=== PATIENT | male | born 1995 | race Caucasian/White ===

== ENCOUNTER 2017-06-14 20:25 | Inpatient (IN) | payer OTHER ==
[~2017-06-14] VITALS: Ht 175.3 cm; Wt 69.1 kg
[2017-06-14 21:48] LABS: MEAN CORPUSCULAR HEMOGLOBIN 30.3 pg (27.0-33.0); MEAN CORPUSCULAR VOLUME 86.7 fl (80.0-96.0); PLATELET COUNT, AUTOMATED 237 k/mm3 (150-450); RED CELL DISTRIBUTION WIDTH 12.4 % (11.5-14.5)
[2017-06-14 22:03] LABS: THYROXINE (T4) 6.9 UG/DL (6.0-11.6)
[2017-06-14 22:04] LABS: ALBUMIN 4.2 GM/DL (3.2-5.2); ALBUMIN/GLOBULIN RATIO 1.56 (1.00-1.93); ALKALINE PHOSPHATASE 79 U/L (45-117); ALT/SGPT 18 U/L (12-78); ANION GAP 9 MEQ/L (8-16); AST/SGOT 15 U/L (15-37); BILIRUBIN,DIRECT 0.4 MG/DL (0.0-0.2); BILIRUBIN,TOTAL 2.7 MG/DL (0.2-1.0); BLOOD UREA NITROGEN 16 MG/DL (7-18); CALCIUM LEVEL 9.3 MG/DL (8.5-10.1); CARBON DIOXIDE LEVEL 28 MEQ/L (21-32); CHLORIDE LEVEL 105 MEQ/L (98-107); CREATININE FOR GFR 1.02 MG/DL (0.70-1.30); GLUCOSE, FASTING 72 MG/DL (70-105); POTASSIUM SERUM 4.1 MEQ/L (3.5-5.1); SODIUM LEVEL 142 MEQ/L (136-145); TOTAL PROTEIN 6.9 GM/DL (6.4-8.2)
--- NOTE | 2017-06-14 22:10 | REPUSA ---
CLINICAL HISTORY: Altered level of consciousness COMPARISON: No study for comparison is available at the time of interpretation. TECHNIQUE: Head CT without contrast. Total DLP 895 mGy*cm Brain: No intracranial hemorrhage, hydrocephalus, acute parenchymal edema or evident mass. Calvarium: Unremarkable. Sinuses (partially visualized): Osteoma is noted in the right ethmoid air cells. No mucosal thickenin g or fluid levels. IMPRESSION: No acute intracranial findings.
[2017-06-14 22:20] LABS: METHADONE URINE NEGATIVE (NEGATIVE)
[2017-06-14] MEDS ORDERED: ACETAMINOPHEN TAB 650MG DOSE (2X325MG) PO PRN (22:45)
[2017-06-14] MEDS ORDERED: MAALOX 30 ML SUSP *UDC PO PRN (22:45)
[2017-06-14] MEDS ORDERED: MOM 30ML SUSPENSION UDC PO PRN (22:45)
[2017-06-14] MEDS ORDERED: traZODone 50 MG TAB PO PRN (22:45)
[2017-06-15 02:32] VITALS: BP 136/86
[2017-06-15 06:25] VITALS: BP 136/86
--- NOTE | 2017-06-15 09:12 | HPEPDOC ---
Medical History and Physical Date of Admission Jun 14, 2017 at 22:38 History and Physical PCP: [facility] ATTENDING: Dr. Huber Castro HPI: 21yoM admitted to [facility] for unspecified depressive disorder, being medically examined today. States he feels tired. Reports feeling tired all of the time. States he can never get a good night's rest. Feels like he has had brain side for the past 2 months. States even after sleeping at night he does not feel refreshed. Denies cataplexy. Denies any fevers, chills, weakness,RGAHAM, CP , SOB, cough, palpitations, abdominal pain, N/V/D or changes in bowel or bladder habits. PMHx: Depression Insomnia PSHX: Appendectomy SOCHX: Resides in: [place], from [facility] Marital Status: Single Kids: None Employment: Active duty Tobacco use: Denies ETOH: Denies Illicit Drugs: Denies IV Drug Use: Denies Tattoos done unprofessionally: Denies FAMHX: Mother: Alive, well Father: Alive, well Siblings: Alive, well Children: None Unexpected deaths due to medical reasons: None. ROS: As noted in HPI, otherwise 11pt ROS of systems reviewed and unremarkable. PE: GEN: 21yoM, appears stated age. Well-nourished, well developed. No acute distress. Alert and oriented x 3. Affect is flat, avoids eye contact. HEENT: Normocephalic, atraumatic. Pupils are equal, round, and reactive to light. Extraocular movements are intact. No nystagmus appreciated. Sclera are nonicteric. Conjunctiva without injection. Nose midline. Nasal turbinates without bogginess. EACs both patent BL. TMs both visualized and foster with good cone of light, no bulging or erythema. No facial asymmetry. Moist mucous membranes. Dentition fair. Pharynx pink and moist, no cobblestoning. Neck supple , trachea midline. No lymphadenopathy or thyromegaly appreciated. CHEST: Regular rate and rhythm, +S1, +S2 LUNGS: Clear to auscultation bilaterally. No wheezes, rales, or rhonchi. Breathing appears symmetric and easy. Patient is speaking in full sentences. No accessory muscle use. ABD: Round, soft, non-tender, non-distended. +Bowel sounds throughout. No rebound or guarding. No costovertebral angle tenderness. EXT: Pulses 2+ bilaterally dorsalis pedis and radial. No lower extremity edema appreciated. SKIN: [place], dry, warm. Capillary refill <2sec. No rashes. NEURO: Alert and oriented x 3. Cranial nerves III-XII are intact. No focal deficits appreciated. EKG: Pending CT head No acute intracranial findings. UA pending. A&P: 21yoM admitted to [facility] for unspecified depressive disorder 1. Psych. Plan per Psychiatry. Obtain baseline EKG to assure the safety of psychiatric medications as they can prolong the QT interval. 2. Mild anemia. Check iron studies, B12, folate. 3. Follow up with PCP on discharge. 4. Hypersomnolence. TFTs within normal limits. CT head as above. CT with contrast pending/EEG pending. Consider referral to neurology with sleep study. 5. Staff member Sukh present throughout exam. Vital Signs Vital Signs Date Time Temp Pulse Resp B/P (MAP) Pulse Ox O2 Delivery O2 Flow Rate FiO2 06/15/17 06:25 98.4 50 16 136/86 (103) 100 Room Air Laboratory Data Labs 24H Laboratory Tests 2 06/14/17 20:51: Anion Gap 9, Calcium Level 9.3, Aspartate Amino Transf (AST/SGOT) 15, Alanine Aminotransferase (ALT/SGPT) 18, Alkaline Phosphatase 79, Total Bilirubin 2.7H, Direct Bilirubin 0.4H, Total Creatine Kinase 154, Total Protein 6.9, Albumin 4.2 , Albumin/Globulin Ratio 1.56, Thyroid Stimulating Hormone (TSH) 1.470, Free Thyroxine Index 2.5, Thyroxine (T4) 6.9, Triiodothyronine (T3) Uptake 36, Salicylates Level < 1.7L, Urine Amphetamines Screen NEGATIVE, Urine Benzodiazepines Screen NEGATIVE, Urine Opiates Screen NEGATIVE, Urine Methadone Screen NEGATIVE, Acetaminophen Level < 2.0L, Urine Barbiturates Screen NEGATIVE , Urine Phencyclidine Screen NEGATIVE, Urine Cocaine Metabolite Screen NEGATIVE , Urine Cannabinoids Screen NEGATIVE, Ethyl Alcohol Level < 0.003 CBC/BMP Laboratory Tests 06/14/17 20:51 Red Blood Count 4.43, Mean Corpuscular Volume 86.7, Mean Corpuscular Hemoglobin 30.3, Mean Corpuscular Hemoglobin Concent 35.0, Red Cell Distribution Width 12.4 Home Medications No Active Prescriptions or Reported Meds Allergies Coded Allergies: No Known Allergies (Unverified , 06/14/17) Haley Groves Jun 15, 2017 09:12
[2017-06-15 12:06] LABS: REASON FOR REVIEW COMPREHENSIVE REVIEW
[2017-06-15] MEDS: buPROPion 75 MG TAB PO SCH (14:30)
[2017-06-15] MEDS ORDERED: ISOVUE-370 76% 100ML VIAL (Q9967) As Ordered ONE (14:41)
--- NOTE | 2017-06-15 15:43 | REP ---
CT HEAD WITH CONTRAST: HISTORY: Altered consciousness. CONTRAST: Isovue-370, 75 mL COMPARISON: 06/14/2017 There is no abnormal enhancement with contrast. Signed by Kevin Gan MD 06/15/2017 04:10 P
--- NOTE | 2017-06-15 16:17 | MHHPEPDOC ---
[facility] History & Physical History and Physical DATE OF ADMISSION: Jun 14, 2017 at 22:38 LEGAL STATUS AT ADMISSION: 9.39 CHIEF COMPLAINT: "I'm tired all the time" HISTORY OF THE PRESENT ILLNESS: Patient is a 21-year-old male, who was brought to the ED for evaluation after multiple visits to [facility] for suicidal ideation. Patient reports a history of steadily increasing fatigue over the past 2 months which has not been remedied by multiple variations of sleep such as: decreasing sleep, increasing sleep, increasing/decreasing activity. Patient reports that he can sleep for an entire day and upon waking feels as though he has only slept 10 minutes. He is noted to be very drowsy throughout the interview. Associated with this increased need for sleep the patient identifies that he has "30-45 minute blocks of time" in which he cannot remember his actions. Records from [place] indicate that the patient has made mention of wanting to kill himself and has been observed holding conversations with himself that are occasionally disturbing to his roommate. Patient denies ever having suicidal ideation but does agree that he occasionally talks to himself, but is not talking to unseen others per the records. 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 Patient denies any recent stressors which may have contributed to this current presentation; he also denies toxic exposures or insect bites within the past several months. He does not a head injury with LOC when he was 9 but denies seeking medical treatment at the time or any lasting effects. PSYCHIATRIC REVIEW OF SYSTEMS: Patient reports increased need for sleep and decreased energy; he denies a depressed mood, suicidal thoughts, or change in appetite. He denies homicidal ideations, auditory or visual hallucinations, a sense of anxiety, or past traumatic events. PAST PSYCHIATRIC HISTORY: Prior Psychiatric Disorder: denies; denies family history of psychiatric illness. Outpatient Treatment: denies Suicidal/Self injurious: denies Psychotropic Medication History: denies ALLERGIES: Please see below. FAMILY PSYCHIATRIC HISTORY: denies SOCIAL HISTORY: Early Relations/development: reports "average" childhood; denies any major issues growing up Paternal relationships: no issues with his parents Education: high school, wants to attend college Occupational: active duty soldier, recently completed basic training Legal: denies Martial: single Economic: no major financial concerns Supports: family lives near [place], [place]; has good connections when he returns home Abuse/trauma: denies SUBSTANCE ABUSE HISTORY: denies PAST MEDICAL/SURGICAL HISTORY: denies any history Vital Signs Date Time Temp Pulse Resp B/P (MAP) Pulse Ox O2 Delivery O2 Flow Rate FiO2 06/14/17 20:26 97.0 96 18 110/60 (77) 99 Room Air MENTAL STATUS EXAMINATION: 21 year old male who appears stated age, dressed in [facility]; calm and cooperative with interview, somnolent. Speech is fluent with regular rate and rhythm, normal tone. Thought process appears logical, linear, and goal-oriented ; he displays decreased latency in his response although this may be due to tiredness; associations are intact. Denies SI/HI/AVH. His cognition appears grossly intact however he required repetition of several questions during the interview, likely secondary to his somnolence. Insight and judgement appear fair. Patient oriented to self and place; had difficulty with temporal orientation; he displays good recent and remote memory. His mood is "alright, but tired"; affect is sleepy/depressed; blunted range, congruent to stated mood DIAGNOSES: Unspecified Depressive Disorder; r/o Major Depressive Disorder vs. Depressive Disorder secondary to other medical condition Unspecified Hypersomnolence Disorder ASSESSMENT: This is a 21 year old man with no known psychiatric history who is presenting with possible depressed mood and reports of previous suicidal ideation. Patient describes a 2-month history of steadily increasing hypersomnolence and fatigue without known cause. At this time the presenting diagnosis is unclear and will need further evaluation of both medical and psychiatric causes. Patient does not appear to be an acute danger to himself or others at this time, however he is experiencing distressing symptoms related to his somnolence. PROBLEM LIST: 1. Depressed Mood 2. Altered Consciousness 3. Self-care deficit INITIAL TREATMENT PLAN: 1. Patient was admitted on a 9.39 2. Complete history was obtained. 3. With patients permission, family will be contacted and database will be expanded. 4. Patients medication regimen will be reviewed and changed accordingly. Will start patient on Wellbutrin 75mg daily for depressed mood and to assist with somnolence. 5. Patient will be provided with protected environment. 6. Patient will be treated with individual, group, and milieu therapies. 7. Patient will receive supportive psych-education. 8. Discharge planning will commence immediately. 9. Outpatient follow-up treatment will be strongly recommended. 10. The initial treatment plan will focus initially on: * Depression. * Risk for suicide. * Substance abuse. 11. EEG performed, awaiting results 12. Repeat CT performed with contrast, initial report states no enhancements with contrast; consider MRI to look for white matter disease 13. Sleep studies (polysomnography and mean sleep latency) to be arranged for outpatient follow-up 14. Lyme panel and peripheral blood smear to assist in finding medical causes of hypersomnolence, fatigue, and mild anemia ESTIMATED LENGTH OF STAY: 5-7 DAYS. TIME SPENT COUNSELING AND COORDINATING INITIAL CARE: 45 minutes. Laboratory Data 24H Labs Laboratory Tests 2 06/14/17 20:51: Differential Slide Review Report, Differential Pathologist's Review COMPREHENSIVE REVIEW, Peripheral Blood Smear Path Consult PERIPHERAL SMEAR, Anion Gap 9, Calcium Level 9.3, Aspartate Amino Transf (AST/SGOT) 15, Alanine Aminotransferase (ALT/SGPT) 18, Alkaline Phosphatase 79, Total Bilirubin 2.7H, Direct Bilirubin 0.4H, Total Creatine Kinase 154, Total Protein 6.9, Albumin 4.2 , Albumin/Globulin Ratio 1.56, Thyroid Stimulating Hormone (TSH) 1.470, Free Thyroxine Index 2.5, Thyroxine (T4) 6.9, Triiodothyronine (T3) Uptake 36, Salicylates Level < 1.7L, Urine Amphetamines Screen NEGATIVE, Urine Benzodiazepines Screen NEGATIVE, Urine Opiates Screen NEGATIVE, Urine Methadone Screen NEGATIVE, Acetaminophen Level < 2.0L, Urine Barbiturates Screen NEGATIVE , Urine Phencyclidine Screen NEGATIVE, Urine Cocaine Metabolite Screen NEGATIVE , Urine Cannabinoids Screen NEGATIVE, Ethyl Alcohol Level < 0.003 CBC/BMP Laboratory Tests 06/14/17 20:51 Red Blood Count 4.43, Mean Corpuscular Volume 86.7, Mean Corpuscular Hemoglobin 30.3, Mean Corpuscular Hemoglobin Concent 35.0, Red Cell Distribution Width 12.4 Medications No Active Prescriptions or Reported Meds Allergies Coded Allergies: No Known Allergies (Unverified , 06/14/17) YOGI DALTON MD Jun 15, 2017 16:17
--- NOTE | 2017-06-15 16:42 | ECGEPIP ---
Stationary ECG Study [facility] Test Date: 2017-06-15 Pat Name: ALANNAH GUNDERSON Department: Room: [place] [address] Gender: M [employer] Layer: : 1995 Requested By: Haley Groves Order Number: [id number] Reading MD: Jovany Wan Measurements Intervals [place] Rate: 56 P: 30 [place]: 117 QRS: 77 QRSD: 100 T: 59 QT: 407 QTc: 395 Interpretive Statements Sinus bradycardia/sinus arrhythmia. Within normal limits for age Electronically Signed On 06-15-2017 16:42:16 EDT by Jovany Wan
[2017-06-15 18:00] VITALS: BP 128/60
[2017-06-16 06:34] VITALS: BP 150/66
[2017-06-16 07:45] LABS: MEAN CORPUSCULAR HEMOGLOBIN 30.1 pg (27.0-33.0); MEAN CORPUSCULAR HGB CONC 34.6 g/dl (32.0-36.5); MEAN CORPUSCULAR VOLUME 86.9 fl (80.0-96.0); RED CELL DISTRIBUTION WIDTH 12.5 % (11.5-14.5)
[2017-06-16 08:04] LABS: PERCENT SATURATION 23.6 % (19.7-50.0)
[2017-06-16] MEDS: buPROPion 75 MG TAB PO SCH (08:29)
--- NOTE | 2017-06-16 09:38 | EEG ---
DATE OF PROCEDURE: 06/15/2017 REFERRING PHYSICIAN: Dr. Aurora Mcrae DIAGNOSIS: Altered mental status. EEG NUMBER: [id number] HISTORY: The patient is a 21-year-old man who was admitted at [facility] due to insomnia and depression. He feels tired. This EEG was done to rule out epileptic potential and to evaluate for encephalopathy. He is currently on trazodone, Tylenol, etc. TECHNICAL DESCRIPTION: This digital EEG was recorded by 21 scalp, ear and two EKG electrodes and was reviewed in bipolar and referential montages following reformatting in 10-20 international electrode placement system. INTERPRETATION: The patient was noted to be in awake and drowsy states during this EEG. Resting awake background rhythm consisted of well-formed posterior dominant rhythm with anterior/posterior gradient comprising of 10 Hz alpha activity measuring 20-70 microvolts in amplitude which was symmetric and reactive to eye opening. Anteriorly low voltage and mixed frequency activity was noted. Attenuation of posterior dominant rhythm was seen during transition into drowsiness. No sleep was achieved. Hyperventilation elicited mild theta slowing of background rhythm. Photic stimulation at 3-30 Hz elicited symmetric photic driving, especially at mid frequencies. EKG revealed normal sinus rhythm. No focal, lateralizing or epileptiform abnormalities were seen. No clinical or electrographic seizures were recorded. CONCLUSION: This EEG in awake and drowsy states is within normal limits.
[2017-06-16 18:00] VITALS: BP 123/56
[2017-06-17 06:43] VITALS: BP 129/60
[2017-06-17] MEDS: buPROPion 100 MG TAB PO SCH (09:02)
[2017-06-17 18:00] VITALS: BP 116/54
--- NOTE | 2017-06-17 20:53 | MHIPN ---
DATE: 06/16/2017 VITAL SIGNS: Temperature 98.5, pulse 54, respirations 16, blood pressure 150/66. CURRENT MEDICATIONS: - Wellbutrin 75 mg every morning - trazodone 50 mg nightly as needed HISTORY OF PRESENT ILLNESS: This is a 21-year-old white male with a history of suicidal ideation, depression, fatigue, and hypersomnia. He is not able to explain the hypersomnia. He denies any major stress in his life. He claims he is coping well with life here in the . The patient grew up in the [facility] and sees his family on a regular basis. 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 The patient has been on Wellbutrin for a number of days now and he is tolerating it well. He has not noticed any benefit from it, but is willing to increase the dosage. MENTAL STATUS EXAMINATION: The patient is alert, oriented, and cooperative. He does appear quite sleepy. Affect is sad. He minimizes the depression, however. He currently denies suicidal ideation. No signs of bre. He denies any psychotic symptoms. He is not hearing voices. No paranoia or thought disorder. Grooming and hygiene appear good. DIAGNOSIS: Depressive disorder, unspecified. PLAN: Increase Wellbutrin to 100 mg by mouth every morning.
[2017-06-18 06:55] VITALS: BP 120/60
[2017-06-18 07:37] LABS: ALBUMIN 4.2 GM/DL (3.2-5.2); ALBUMIN/GLOBULIN RATIO 1.35 (1.00-1.93); ALKALINE PHOSPHATASE 80 U/L (45-117); ALT/SGPT 16 U/L (12-78); AST/SGOT 8 U/L (15-37); BILIRUBIN,DIRECT 0.3 MG/DL (0.0-0.2); BILIRUBIN,TOTAL 1.7 MG/DL (0.2-1.0); TOTAL PROTEIN 7.3 GM/DL (6.4-8.2)
--- NOTE | 2017-06-18 07:45 | IPN ---
DATE: 06/17/2017 VITAL SIGNS: Temperature 97.0, pulse 58, respirations 16, blood pressure 129/60. CURRENT MEDICATIONS: - Wellbutrin 100 mg every morning HISTORY OF PRESENT ILLNESS: Patient still complains of fatigue. He slept all day yesterday. He feels exhausted this morning. He is concerned about losing his memory. For example, he is concerned about loss of memory details during 2014 and 2016. Patient states he is too tired to know if he is depressed or not. He is complaining of headaches. He is somewhat vague about this, but they appear to be new since being on the Wellbutrin. He will discuss this with his provider tomorrow. MENTAL STATUS EXAMINATION: Patient does appear to be fatigued. He is oriented. Insight appears limited. Judgment is fair. Affect does appear sad with apparent depressed mood. He is not suicidal. No signs of psychosis. Patient reports memory impairment from 2014 and 2015, but no current memory issues or deficits noted. DIAGNOSIS: Unspecified depressive disorder. PLAN: No change in psychotropics. Patient to see normal provider tomorrow.
[2017-06-18] MEDS: buPROPion 100 MG TAB PO SCH (09:27)
[2017-06-18 10:01] LABS: IMMUNOGLOBULIN M 46.8 MG/DL (40-230)
[2017-06-18 11:47] LABS: FOLATE 20.4 NG/ML (>5.4)
--- NOTE | 2017-06-18 17:32 | MHIPNPDOC ---
[facility] Progress Note Progress Note DATE OF SERVICE: 06/18/17 HISTORY: Patient remains very somnolent, reports that he felt somewhat more energized on the previous day. Has had no reported side effects from starting Wellbutrin. Staff report indicates that patient's tiredness may be somewhat volitional as he has been observed interacting appropriately with his command and to have become more animated during 1:1 interview with staff. Patient remains in agreement with current plan to seek medical causes of his fatigue, remains compliant with Wellbutrin administration. VITAL SIGNS: See below. NEW TEST RESULTS: see lab section. CURRENT MEDICATIONS: See below. MENTAL STATUS EXAMINATION: 21 year old man who appears stated age; dressed in [facility] with good hygiene; somnolent during interview. Speech is delayed, but has a normal rhythm and tone, patient appears exhausted. His thought process appears logical and goal-oriented; limited assessment can be made of his reasoning and associations as he does not talk much, but they appear intact. He denies suicidal or homicidal ideation. Denies auditory or visual hallucinations. Mood is "tired", affect is sleepy, restricted range, congruent to stated mood. Insight and judgement appear fair. DIAGNOSES: Unspecified Depressive Disorder Unspecified Hypersomnolence Disorder ASSESSMENT: 21 year old man with hypersomnolence of unknown origin. Medical workup is still pending, patient will need a sleep study to assist in ruling out medical causes of his current condition. He is not reporting depressive or anxious symptoms however he has gaps in his memory suggestive of either cognitive dysfunction or dissociative states. Patient will need further examination and testing to rule out a medical cause. MANAGEMENT PLAN: Plan to have patient go on pass for polysomnography and possible mean sleep latency testing; awaiting lab results for other medical causes of his current condition; will continue Wellbutrin with plan to increase to 150mg daily. TIME SPENT: 20 minutes. Vital Signs Vital Signs Date Time Temp Pulse Resp B/P (MAP) Pulse Ox O2 Delivery O2 Flow Rate FiO2 06/18/17 06:55 98.3 50 16 120/60 (80) Room Air 06/15/17 06:25 100 Laboratory Data 24H Labs Laboratory Tests 2 06/18/17 06:48: 06/18/17 06:50: Aspartate Amino Transf (AST/SGOT) 8L, Alanine Aminotransferase (ALT/SGPT) 16, Alkaline Phosphatase 80, Total Bilirubin 1.7H, Direct Bilirubin 0.3H, Total Protein 7.3, Albumin 4.2, Albumin/Globulin Ratio 1.35, Immunoglobulin M 46.8, Rheumatoid Factor < 10.0 Current Medications Current Medications Acetaminophen (Tylenol Tab) 650 mg Q6HP PRN PO HEADACHE or DISCOMFORT; Start at 22:45; Stop 07/14/17 at 22:44 Al Hydrox/Mg Hydrox/Simethicone (Mylanta) 30 ml Q4HP PRN PO HEARTBURN/ INDIGESTION; Start 06/14/17 at 22:45; Stop 07/14/17 at 22:44 Bupropion HCl (Wellbutrin) 75 mg DAILY PO Last administered on 06/16/17 08:29; Start 06/15/17 at 09:00; Stop 06/16/17 at 10:22; Status DC Bupropion HCl (Wellbutrin) 100 mg DAILY PO Last administered on 06/18/17 09:27 ; Start 06/17/17 at 09:00; Stop 07/17/17 at 08:59 Home Med (Med Rec Complete!) ASDIRECTED XX ; Start 06/14/17 at 21:45; Stop at 21:45; Status DC Magnesium Hydroxide (Milk Of Magnesia) 30 ml DAILYPRN PRN PO CONSTIPATION; Start 06/14/17 at 22:45; Stop 07/14/17 at 22:44 Trazodone HCl (Desyrel) 50 mg QHSP PRN PO INSOMNIA; Start 06/14/17 at 22:45; Stop 07/14/17 at 22:44 Allergies Coded Allergies: No Known Allergies (Unverified , 06/14/17) YOGI DALTON MD Jun 18, 2017 17:32
[2017-06-18 18:25] VITALS: BP 122/59
[2017-06-19 06:44] VITALS: BP 123/58
[2017-06-19] MEDS: buPROPion 100 MG TAB PO SCH (08:41)
[2017-06-19] MEDS: buPROPion 75 MG TAB PO SCH (09:00)
--- NOTE | 2017-06-19 16:39 | MHIPNPDOC ---
[facility] Progress Note Progress Note DATE OF SERVICE: 06/19/17 HISTORY: Patient seen laughing in the hallway shortly before today's interview; at time of interview patient was again sleepy and having a difficult time focusing. When asked to explain this discrepancy as well as his observed interactions yesterday the patient states that after he showers he is awake for 10-15 minutes and that when talking to others and being more interactive he inflicts pain upon himself by biting his tongue. Patient states that he has been utilizing pain to keep himself awake for the past week so that he is able to function at work. VITAL SIGNS: See below. NEW TEST RESULTS: no new labs. CURRENT MEDICATIONS: See below. MENTAL STATUS EXAMINATION: Patient is 21 year old male who appears the stated age; dressed in [facility]; calm and cooperative with interview, very somnolent. His speech is fluent although has some delayed latency likely related to his expressed lethargy. Patient's thought process appears mildly illogical with bizarre explanations being provided for actions; patient remains goal-oriented, focused on finding help for his lethargy. Denies SI/HI/AVH; denies paranoia or delusions , none elicited in interview. Stated mood is "tired"; sleepy affect, restricted range; congruent to stated thought content. 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 Patient has no recollection of these events and describes instead a 2 month period of steadily increasing fatigue and associated memory gaps. At this time medical workup for causes of fatigue have remained negative. Patient has not appeared apneic or been noted to have excessive snoring. Patient has been observed to have varying levels of interaction but presents for evaluation with a consistent increased fatigue. There may be a volitional aspect to the patient's current presentation with unclear benefit to the patient. 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 It is possible that despite the patient's stated desire to remain in the he does not wish to continue his service. 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; increased Wellbutrin to 150mg daily; encourage patient to participate in group activities on the unit; continued psychiatric evaluation; awaiting Lyme titers and ROSEANNE titers for evaluation of medical causes; will have patient scheduled for outpatient sleep study TIME SPENT: 15 minutes Vital Signs Vital Signs Date Time Temp Pulse Resp B/P (MAP) Pulse Ox O2 Delivery O2 Flow Rate FiO2 06/19/17 06:44 97.1 66 16 123/58 (79) 06/18/17 06:55 Room Air 06/15/17 06:25 100 Current Medications Current Medications Acetaminophen (Tylenol Tab) 650 mg Q6HP PRN PO HEADACHE or DISCOMFORT; Start at 22:45; Stop 07/14/17 at 22:44 Al Hydrox/Mg Hydrox/Simethicone (Mylanta) 30 ml Q4HP PRN PO HEARTBURN/ INDIGESTION; Start 06/14/17 at 22:45; Stop 07/14/17 at 22:44 Bupropion HCl (Wellbutrin) 75 mg DAILY PO Last administered on 06/16/17 08:29; Start 06/15/17 at 09:00; Stop 06/16/17 at 10:22; Status DC Bupropion HCl (Wellbutrin) 100 mg DAILY PO Last administered on 06/18/17 09:27 ; Start 06/17/17 at 09:00; Stop 06/19/17 at 09:03; Status DC Bupropion HCl (Wellbutrin) 150 mg DAILY PO ; Start 06/19/17 at 09:00; Stop at 08:59 Home Med (Med Rec Complete!) ASDIRECTED XX ; Start 06/14/17 at 21:45; Stop at 21:45; Status DC Magnesium Hydroxide (Milk Of Magnesia) 30 ml DAILYPRN PRN PO CONSTIPATION; Start 06/14/17 at 22:45; Stop 07/14/17 at 22:44 Trazodone HCl (Desyrel) 50 mg QHSP PRN PO INSOMNIA; Start 06/14/17 at 22:45; Stop 07/14/17 at 22:44 Allergies Coded Allergies: No Known Allergies (Unverified , 06/14/17) YOGI DALTON MD Jun 19, 2017 16:39
[2017-06-19 18:08] VITALS: BP 114/56
[2017-06-20 00:06] LABS: Lyme Disease IgG/IgM Antibodie <0.91 ISR (0.00-0.90); Lyme Disease IgM Ab Quantitati <0.80 index (0.00-0.79)
[2017-06-20 06:45] VITALS: BP 125/56
[2017-06-20] MEDS: buPROPion 75 MG TAB PO SCH (09:00)
--- NOTE | 2017-06-20 17:54 | REP ---
MRI BRAIN WITHOUT CONTRAST: HISTORY: Behavior change. COMPARISON: CT 06/14/2017 and 06/15/2017 A single punctate focus of increased signal intensity on T2-weighted images is present in the subcortical white matter of the right frontal lobe. There is no intraparenchymal hemorrhage, infarct, mass or midline shift. The ventricular system is normal in appearance. There is no extracerebral collection. Minimal mucosal thickening is present in the right ethmoid and maxillary sinuses. IMPRESSION: There is a single punctate focus of increased signal intensity in the subcortical white matter of the right frontal lobe. This is a nonspecific finding. Signed by Kevin Gan MD 06/21/2017 08:30 A
[2017-06-20 18:01] VITALS: BP 110/56
--- NOTE | 2017-06-20 19:24 | MHIPNPDOC ---
[facility] Progress Note Progress Note DATE OF SERVICE: 06/20/17 HISTORY: Patient is a 21-year-old male, who was brought to the ED for evaluation after multiple visits to [facility] for suicidal ideation. Patient reports a history of steadily increasing fatigue over the past 2 months which has not been remedied by multiple variations of sleep such as: decreasing sleep, increasing sleep, increasing/decreasing activity. Yesterday the patient was seen walking and talking normally in the hallway and shortly after he was laying in bed, seemingly extremely sleepy, rolling his eyes , with slurred speech. one of the Nurses reported when he talks to her he is not sleepy. When confronted with discrepancies he states he bites his tongue when he talks to this Nurse, to keep himself awake. Today he was reported laying in bed by the Nursing Staff and Nurses Aids and said, he laughed inappropriately when they spoke to him. They say he pulls his sheets and covers his face, sometimes attempting to make a knot above his head. Once again , he was confronted with this situation, plus the fact, that he has been refusing medications, Wellbutrin to be precise, that was given to him in an attempt to perk him up assuming he could be depressed. He proceeds to say we haven't made all the medical tests that need to be done, that maybe his brain is not getting all the oxygen it should, maybe he is not getting enough blood flow. Questioned about his theory, he was told his EKG, blood pressure, heart rhythm are normal. An MRI of the brain was ordered and he was started on an antipsychotic. VITAL SIGNS: See below. NEW TEST RESULTS: MRI of the brain. MRI BRAIN WITHOUT CONTRAST: HISTORY: Behavior change. COMPARISON: CT 06/14/2017 and 06/15/2017 A single punctate focus of increased signal intensity on T2-weighted images is present in the subcortical white matter of the right frontal lobe. There is no intraparenchymal hemorrhage, infarct, mass or midline shift. The ventricular system is normal in appearance. There is no extracerebral collection. Minimal mucosal thickening is present in the right ethmoid and maxillary sinuses. IMPRESSION: There is a single punctate focus of increased signal intensity in the subcortical white matter of the right frontal lobe. This is a nonspecific finding. This is the result: CURRENT MEDICATIONS: See below. MENTAL STATUS EXAMINATION: Patient is a [21-year old male, who is alert, uncooperative, with no eye contact. Speech: Is Slurred. Language skills are Fair. Thought processes including: Intact. Thought content: coherent. Abstract reasoning, and computation: Not assessed. Description of associations: good. Description of abnormal or psychotic thoughts: Patient is not responding to internal stimuli. He denies auditory and visual hallucinations. He talks to himself, occasionally. Denies suicidal or homicidal ideation. Judgment: Poor. Insight: Poor. Orientation: Oriented x 3. Recent and remote memory: Intact. Attention span and concentration: Fair. Language: Normal. Fund of knowledge: Fair. Mood: Euthymic. Affect: Inappropriate, laughs when discussing serious and important issues . DIAGNOSES: 1. Unspecified depressive disorder 2. Unspecified personality disorder, possibly antisocial PD 3. Unspecified hypersomnolence d/o ASSESSMENT:patient's labs and tests results have been negative. There are discrepancies in his behavior. Is refusing medication. Patient is to remain out of his bedroom and ask for the bathroom to be unlocked if he needs to use it. patient has to engage in group therapy. MANAGEMENT PLAN: Aripiprazole 2.5 mgs PO QAM, Wellbutrin 150 mgs. PO QAM. TIME SPENT: 45 minutes. Vital Signs Vital Signs Date Time Temp Pulse Resp B/P (MAP) Pulse Ox O2 Delivery O2 Flow Rate FiO2 06/20/17 18:01 98.5 56 16 110/56 (74) 06/18/17 06:55 Room Air 06/15/17 06:25 100 Current Medications Current Medications Acetaminophen (Tylenol Tab) 650 mg Q6HP PRN PO HEADACHE or DISCOMFORT; Start at 22:45; Stop 07/14/17 at 22:44 Al Hydrox/Mg Hydrox/Simethicone (Mylanta) 30 ml Q4HP PRN PO HEARTBURN/ INDIGESTION; Start 06/14/17 at 22:45; Stop 07/14/17 at 22:44 Aripiprazole (AbiLIFY) 2.5 mg QAM PO Last administered on 06/20/17 16:34; Start 06/20/17 at 09:00; Stop 07/20/17 at 08:59 Bupropion HCl (Wellbutrin) 75 mg DAILY PO Last administered on 06/16/17 08:29; Start 06/15/17 at 09:00; Stop 06/16/17 at 10:22; Status DC Bupropion HCl (Wellbutrin) 100 mg DAILY PO Last administered on 06/18/17 09:27 ; Start 06/17/17 at 09:00; Stop 06/19/17 at 09:03; Status DC Bupropion HCl (Wellbutrin) 150 mg DAILY PO ; Start 06/19/17 at 09:00; Stop at 08:59 Home Med (Med Rec Complete!) ASDIRECTED XX ; Start 06/14/17 at 21:45; Stop at 21:45; Status DC Magnesium Hydroxide (Milk Of Magnesia) 30 ml DAILYPRN PRN PO CONSTIPATION; Start 06/14/17 at 22:45; Stop 07/14/17 at 22:44 Trazodone HCl (Desyrel) 50 mg QHSP PRN PO INSOMNIA; Start 06/14/17 at 22:45; Stop 07/14/17 at 22:44 Allergies Coded Allergies: No Known Allergies (Unverified , 06/14/17) BAR BURNETT MD Jun 20, 2017 19:24
[2017-06-21 07:06] VITALS: BP 126/52
[2017-06-21] MEDS: buPROPion 75 MG TAB PO SCH (08:34)
[2017-06-21 18:00] VITALS: BP 103/55
--- NOTE | 2017-06-21 18:14 | MHIPNPDOC ---
[facility] Progress Note Progress Note DATE OF SERVICE: 06/21/17 HISTORY: MRI w/contrast showed small non-specific lesion in frontal lobe. Patient informed of this, told he would be referred to a neurologist for further evaluation. Patient states he feels "a little more awake" today, endorses that his sleepiness is not greatly changed and that it hits him worst after about 1-2 hours of waking time. Reports mild nausea from aripiprazole but otherwise has no complaints today. Is agreeable to returning to [place] with continued outpatient follow-up for medical workup. VITAL SIGNS: See below. NEW TEST RESULTS: MRI Brain - There is a single punctate focus of increased signal intensity in the subcortical white matter of the right frontal lobe. This is a nonspecific finding. CURRENT MEDICATIONS: See below. MENTAL STATUS EXAMINATION: Patient is 21 year old male who appears the stated age; dressed in [facility]; calm and cooperative with interview, very somnolent; limited eye contact. His speech is fluent with no noticeable latency today. Patient's thought process is logical, goal-oriented; associations appear intact. Denies SI/HI/AVH; denies paranoia or delusions, none elicited in interview. Stated mood is "tired"; sleepy affect, restricted range; congruent to stated thought content. Insight appears poor; judgement appears poor-fair DIAGNOSES: Unspecified Hypersomnolence Disorder Unspecified Personality Disorder Unspecified Depressive Disorder, r/o MDD with psychotic features ASSESSMENT: Patient appears to be responding to initiation of Abilify; will plan to continue and increase dose as tolerated. Patient has thus far had negative medical workup for causes of hypersomnolence. Non-specific finding on MRI may be indicative of a medical cause for his behaviors, however this will need further evaluation by a neurologist. Patient has had limited participation in groups but has managed to stay awake while locked out of room. At this time there appears to be no overt medical cause of patient's behavior and somnolence ; in the absence of a sleep study this may suggest a psychiatric defense from some as yet undiscussed onerous burden. 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 MANAGEMENT PLAN: Increase Abilify to 5mg BID; encourage patient to continue participating in milieu activities; encourage patient to maintain regular sleep schedule; will refer to outpatient Neurology on discharge. TIME SPENT: 15 minutes. Vital Signs Vital Signs Date Time Temp Pulse Resp B/P (MAP) Pulse Ox O2 Delivery O2 Flow Rate FiO2 06/21/17 07:06 98.8 68 16 126/52 (76) 06/18/17 06:55 Room Air 06/15/17 06:25 100 Current Medications Current Medications Acetaminophen (Tylenol Tab) 650 mg Q6HP PRN PO HEADACHE or DISCOMFORT; Start at 22:45; Stop 07/14/17 at 22:44 Al Hydrox/Mg Hydrox/Simethicone (Mylanta) 30 ml Q4HP PRN PO HEARTBURN/ INDIGESTION; Start 06/14/17 at 22:45; Stop 07/14/17 at 22:44 Aripiprazole (AbiLIFY) 2.5 mg QAM PO Last administered on 06/21/17 08:33; Start 06/20/17 at 09:00; Stop 06/21/17 at 14:46; Status DC Aripiprazole (AbiLIFY) 5 mg BID PO ; Start 06/21/17 at 21:00; Stop 07/20/17 at 08 :59 Bupropion HCl (Wellbutrin) 75 mg DAILY PO Last administered on 06/16/17 08:29; Start 06/15/17 at 09:00; Stop 06/16/17 at 10:22; Status DC Bupropion HCl (Wellbutrin) 100 mg DAILY PO Last administered on 06/18/17 09:27 ; Start 06/17/17 at 09:00; Stop 06/19/17 at 09:03; Status DC Bupropion HCl (Wellbutrin) 150 mg DAILY PO ; Start 06/19/17 at 09:00; Stop at 08:59 Home Med (Med Rec Complete!) ASDIRECTED XX ; Start 06/14/17 at 21:45; Stop at 21:45; Status DC Magnesium Hydroxide (Milk Of Magnesia) 30 ml DAILYPRN PRN PO CONSTIPATION; Start 06/14/17 at 22:45; Stop 07/14/17 at 22:44 Trazodone HCl (Desyrel) 50 mg QHSP PRN PO INSOMNIA; Start 06/14/17 at 22:45; Stop 07/14/17 at 22:44 Allergies Coded Allergies: No Known Allergies (Unverified , 06/14/17) YOGI DALTON MD Jun 21, 2017 18:14
[2017-06-22 07:00] VITALS: BP 126/60
[2017-06-22] MEDS: buPROPion 75 MG TAB PO SCH (09:09)
--- NOTE | 2017-06-22 14:24 | MHIPNPDOC ---
[facility] Progress Note Progress Note DATE OF SERVICE: 06/22/17 HISTORY: States his fatigue is worse today than yesterday; has been attending group sessions but feels that he cannot stay awake for greater than an hour today. Denies SI/HI/AVH. Remains minimally cooperative with interview. Has not been experiencing side effects from his medications, took Wellbutrin again today. VITAL SIGNS: See below. NEW TEST RESULTS: no new labs. CURRENT MEDICATIONS: See below. MENTAL STATUS EXAMINATION: 21 year old male who appears the stated age; dressed in [facility]; cooperative with interview, somewhat dismissive; intermittent eye contact. Speec his fluent, normal rate and rhythm. Thought process is logical, goal- oriented; associations are intact; denies SI/HI. Patient denies AVH, no evidence of paranoia or delusions. Mood is "I feel more tired than yesterday"; affect is sleepy, at times hostile, blunted range, incongruent to thought content. Insight appears poor, judgement appears fair. 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 At this point all medical causes that have been tested for have returned negative, patient cannot have sleep study done until outpatient so idiopathic hypersomnia cannot be rule out yet. Patient has been compliant with medication for the past 2 days without noticeable improvement. There may be some elements of malingering present as patient appears to be seeking some external gain that has not yet been identified. 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 MANAGEMENT PLAN: Continue current medications; plan for discharge early next week; patient will follow-up with [facility] for continued management; recommend that patient have neurologic follow-up. TIME SPENT: 15 minutes. Vital Signs Vital Signs Date Time Temp Pulse Resp B/P (MAP) Pulse Ox O2 Delivery O2 Flow Rate FiO2 06/22/17 07:00 98.0 52 16 126/60 (82) 06/18/17 06:55 Room Air Current Medications Current Medications Acetaminophen (Tylenol Tab) 650 mg Q6HP PRN PO HEADACHE or DISCOMFORT; Start at 22:45; Stop 07/14/17 at 22:44 Al Hydrox/Mg Hydrox/Simethicone (Mylanta) 30 ml Q4HP PRN PO HEARTBURN/ INDIGESTION; Start 06/14/17 at 22:45; Stop 07/14/17 at 22:44 Aripiprazole (AbiLIFY) 2.5 mg QAM PO Last administered on 06/21/17 08:33; Start 06/20/17 at 09:00; Stop 06/21/17 at 14:46; Status DC Aripiprazole (AbiLIFY) 5 mg BID PO Last administered on 06/22/17 09:09; Start 06/21/17 at 21:00; Stop 07/20/17 at 08:59 Bupropion HCl (Wellbutrin) 75 mg DAILY PO Last administered on 06/16/17 08:29; Start 06/15/17 at 09:00; Stop 06/16/17 at 10:22; Status DC Bupropion HCl (Wellbutrin) 100 mg DAILY PO Last administered on 06/18/17 09:27 ; Start 06/17/17 at 09:00; Stop 06/19/17 at 09:03; Status DC Bupropion HCl (Wellbutrin) 150 mg DAILY PO Last administered on 06/22/17 09:09 ; Start 06/19/17 at 09:00; Stop 07/19/17 at 08:59 Home Med (Med Rec Complete!) ASDIRECTED XX ; Start 06/14/17 at 21:45; Stop at 21:45; Status DC Magnesium Hydroxide (Milk Of Magnesia) 30 ml DAILYPRN PRN PO CONSTIPATION; Start 06/14/17 at 22:45; Stop 07/14/17 at 22:44 Trazodone HCl (Desyrel) 50 mg QHSP PRN PO INSOMNIA Last administered on 20:46; Start 06/14/17 at 22:45; Stop 06/22/17 at 12:22; Status DC Allergies Coded Allergies: No Known Allergies (Unverified , 06/14/17) YOGI DALTON MD Jun 22, 2017 14:12
[2017-06-22 18:00] VITALS: BP 128/54
[2017-06-23 06:39] VITALS: BP 122/84
[2017-06-23] MEDS: buPROPion 75 MG TAB PO SCH (08:39)
[2017-06-23 18:36] VITALS: BP 121/58
[2017-06-24 06:32] VITALS: BP 122/58
[2017-06-24] MEDS: buPROPion 75 MG TAB PO SCH (08:17)
[2017-06-24 18:33] VITALS: BP 129/60
[2017-06-25 07:12] VITALS: BP 113/55
[2017-06-25] MEDS: buPROPion 75 MG TAB PO SCH (09:02)
[2017-06-25] MEDS ORDERED: BUPR75TA5 PO (10:35)
[2017-06-25] MEDS ORDERED: ARIP5TA PO (10:35)
--- NOTE | 2017-06-25 13:33 | MHDSPDOC ---
[facility] Discharge Summary Discharge Summary DATE OF ADMISSION: Jun 14, 2017 at 22:38 DATE OF DISCHARGE: Jun 25, 2017 at 10:55 DISCHARGE DIAGNOSES: 1. 2. REASON FOR ADMISSION: CONSULTANTS INVOLVED: TREATMENT AND PROGRESS ON THE UNIT : . HOSPITAL COURSE: DISCHARGE ASSESSMENT: MENTAL STATUS EXAMINATION ON DISCHARGE: Patient is a -year old male, who is . Speech is . Language skills are . Thought processes including: . Thought content: . Abstract reasoning, and computation: . Description of associations: . Description of abnormal or psychotic thoughts: . Judgment: . Insight: . Orientation to . Recent and remote memory: . Attention span and concentration: . Language: . Fund of knowledge: . Mood: . Affect: . MEDICATIONS ON DISCHARGE: - for . - for . - for . PLAN/FOLLOWUP ARRANGEMENTS: . The amount of time spent in the coordination of care for this patient was approximately minutes. Vital Signs/I&Os Vital Signs Date Time Temp Pulse Resp B/P (MAP) Pulse Ox O2 Delivery O2 Flow Rate FiO2 06/25/17 07:12 98.1 60 16 113/55 (74) Room Air Laboratory Data Microbiology Microbiology 06/16/17 Urine Culture - Final, Complete Medications Scheduled Aripiprazole (Aripiprazole) 5 Mg Tab, 5 MG PO BID for PSYCHOSIS, #14 Bupropion HCl (Bupropion HCl) 75 Mg Tab, 150 MG PO DAILY for MOOD, #14 Allergies Coded Allergies: No Known Allergies (Unverified , 06/14/17) BAR BURNETT MD Jun 25, 2017 13:33
--- NOTE | 2017-06-25 13:41 | MHHPEPDOC ---
[facility] History & Physical History and Physical DATE OF ADMISSION: Jun 14, 2017 at 22:38 LEGAL STATUS AT ADMISSION: 9.39 CHIEF COMPLAINT: This is a 21-year-old white male with a history of suicidal ideation, depression, fatigue, and hypersomnia. He is not able to explain the hypersomnia. He denies any major stress in his life. He claims he is coping well with life here in the . The patient grew up in the [facility] and sees his family on a regular basis. 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 The patient has been on Wellbutrin for a number of days now and he is tolerating it well. He has not noticed any benefit from it, but is willing to increase the dosage. HISTORY OF THE PRESENT ILLNESS: Patient is a 21-year-old male, who PSYCHIATRIC REVIEW OF SYSTEMS: Affective: . Anxiety: . Trauma: . Psychosis: . Personally: . PAST PSYCHIATRIC HISTORY: Prior Psychiatric Disorder: . Outpatient Treatment: . Suicidal/Self injurious: . Psychotropic Medication History: . ALLERGIES: Please see below. FAMILY PSYCHIATRIC HISTORY: . SOCIAL HISTORY: Early Relations/development: . Sibling order: . Paternal relationships: . Education: . Occupational: . Legal: . Martial: . Economic: . Supports: . Abuse/trauma: . SUBSTANCE ABUSE HISTORY: . PAST MEDICAL/SURGICAL HISTORY: 1. . 2. . VITAL SIGNS: Temperature , pulse , respiratory rate , blood pressure , pulse oximetry % on room air. MENTAL STATUS EXAMINATION: General appearance: Patient is a -year old male, who is . Speech: . Thought processes: . Thought content: . Abstract reasoning and computation: . Description of associations: . Description of abnormal or psychotic thoughts: . Judgment: . Insight: . Orientation: . Recent and remote memory: . Attention span and concentration: . Fund of knowledge: . Mood: "." Affect: . DIAGNOSES: 1. . 2. . 3. . ASSESSMENT: PROBLEM LIST: 1. . 2. . 3. . INITIAL TREATMENT PLAN: 1. Patient was admitted on a . 2. Complete history was obtained. 3. With patients permission, family will be contacted and database will be expanded. 4. Patients medication regimen will be reviewed and changed accordingly. 5. Patient will be provided with protected environment. 6. Patient will be treated with individual, group, and milieu therapies. 7. Patient will receive supportive psych-education. 8. Discharge planning will commence immediately. 9. Outpatient follow-up treatment will be strongly recommended. 10. The initial treatment plan will focus initially on: * Depression. * Risk for suicide. * Substance abuse. ESTIMATED LENGTH OF STAY: - DAYS. TIME SPENT COUNSELING AND COORDINATING INITIAL CARE: minutes. Medications Scheduled Aripiprazole (Aripiprazole) 5 Mg Tab, 5 MG PO BID for PSYCHOSIS Bupropion HCl (Bupropion HCl) 75 Mg Tab, 150 MG PO DAILY for MOOD Allergies Coded Allergies: No Known Allergies (Unverified , 06/14/17) BAR BURNETT MD Jun 25, 2017 13:41
--- NOTE | 2017-06-25 22:44 | MHDSPDOC ---
[facility] Discharge Summary Discharge Summary DATE OF ADMISSION: Jun 14, 2017 at 22:38 DATE OF DISCHARGE: Jun 25, 2017 at 10:55 DISCHARGE DIAGNOSES: 1. Unspecified Hypersomnolence Disorder 2. 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 Unspecified Depressive Disorder, r/o MDD with psychotic features REASON FOR ADMISSION: HISTORY OF PRESENT ILLNESS: This is a 21-year-old white male with a history of suicidal ideation, depression, fatigue, and hypersomnia. He is not able to explain the hypersomnia. He denies any major stress in his life. He claims heis coping well with life here in the . The patient grew up in the [facility] and sees his family on a regular basis. 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 The patient has been on Wellbutrin for a number of days now and he is tolerating it well. He has not noticed any benefit from it, but is willing to increase the dosage. CONSULTANTS INVOLVED: None. Patient will be goig to the [facility] as an outpatient. TREATMENT AND PROGRESS ON THE UNIT: This 21 year old male with increased somnolence of unknown origin. At this point all medical causes that have been tested for have returned negative, patient cannot have sleep study done until outpatient so idiopathic hypersomnia cannot be rule out yet. Patient has been compliant with medication for the past 4 days without noticeable improvement. There may be some elements of malingering present as patient appears to be seeking some external gain that has not yet been identified. There are no active safety concerns as patient has not expressed SI since admission; [place] follow[place]up at [facility] once his command is available for escort. Patient has had EEG, CT with and without contrast, an MRI of the brain, ECG, Lyme Disease studies, auto inmune disorders studies and all of them have been negative. HOSPITAL COURSE: As above. 1. CT WITHOUT CONTRAST RESULTS: CLINICAL HISTORY: Altered level of consciousness COMPARISON: No study for comparison is available at the time of interpretation. TECHNIQUE: Head CT without contrast. Total DLP 895 mGy*cm Brain: No intracranial hemorrhage, hydrocephalus, acute parenchymal edema or evident mass. Calvarium: Unremarkable. Sinuses (partially visualized): Osteoma is noted in the right ethmoid air cells. No mucosal thickening or fluid levels. IMPRESSION: No acute intracranial findings. 2. CT HEAD WITH CONTRAST: HISTORY: Altered consciousness. CONTRAST: Isovue-370, 75 mL COMPARISON: 06/14/2017 There is no abnormal enhancement with contrast. 3. MRI BRAIN WITHOUT CONTRAST: HISTORY: Behavior change. COMPARISON: CT 06/14/2017 and 06/15/2017 A single punctate focus of increased signal intensity on T2-weighted images is present in the subcortical white matter of the right frontal lobe. There is no intraparenchymal hemorrhage, infarct, mass or midline shift. The ventricular system is normal in appearance. There is no extracerebral collection. Minimal mucosal thickening is present in the right ethmoid and maxillary sinuses. IMPRESSION: There is a single punctate focus of increased signal intensity in the subcortical white matter of the right frontal lobe. This is a nonspecific finding. Signed by Kevin Gan MD 06/21/2017 08:30 A DISCHARGE ASSESSMENT: pATIENT WAS STABLE ENOUGH TO BE DISCHARGED,HE WAS NOT IN DANGER TO SELF OR OTHERS, HE WAS NOT SUICIDAL AND NOT HOMICIDAL. HE WAS NOT RESPONDING TO INTERNAL STIMULI. MENTAL STATUS EXAMINATION ON DISCHARGE: Patient is a 21-year old male, who is ALERT, ORIENTED X 3, COOPERATIVE, LESS SLEEPY.. Speech is NORMAL, SPONTANEOUS. Language skills are fAIR. Thought processes including: Intact. Thought content: cOHERENT Abstract reasoning, and computation: Fair Description of associations: Good. Description of abnormal or psychotic thoughts: Not present. Judgment: Improved Insight: Improved. Orientation to Oriented x 3. Recent and remote memory: Intact. Attention span and concentration: Fair. Language: Fair. Fund of knowledge: Fair. Mood: "I feel better, less sleepy but I feel very tired". Affect: Euthymic MEDICATIONS ON DISCHARGE: - Wellbutrin 150 mgs. PO BID for depression - Abilify 5 mgs. PO BID for altered thoughts PLAN/FOLLOWUP ARRANGEMENTS: He will follow up at the [facility] [place] and at the [facility] at [facility]. He will have to f/u with Neurology to r/o possible disorder correlated with his MRI findings. The amount of time spent in the coordination of care for this patient was approximately 45 minutes. Vital Signs/I&Os Vital Signs Date Time Temp Pulse Resp B/P (MAP) Pulse Ox O2 Delivery O2 Flow Rate FiO2 06/25/17 07:12 98.1 60 16 113/55 (74) Room Air Laboratory Data Microbiology Microbiology 06/16/17 Urine Culture - Final, Complete Medications Scheduled Aripiprazole (Aripiprazole) 5 Mg Tab, 5 MG PO BID for PSYCHOSIS, #14 Bupropion HCl (Bupropion HCl) 75 Mg Tab, 150 MG PO DAILY for MOOD, #14 Allergies Coded Allergies: No Known Allergies (Unverified , 06/14/17) BAR BURNETT MD Jun 25, 2017 22:44
[2017-09-13] MEDS ORDERED: TRAZO50TA PO (10:26)
== END 2017-06-25 10:55 | disposition home or self-care (01) | DRG 887 ==
LOC: M ED 20:25 → M ED INP 22:38 → M PSY 06-15 02:15 → M OR 06-23 14:23 → M PSY 06-23 14:24
PROVIDERS: ADMIT Psychiatry & Neurology Psychiatry; ATTEND Psychiatry & Neurology Psychiatry
DX: F51.19 Other hypersomnia not due to a substance or known physiological condition (principal); F60.81 Narcissistic personality disorder; F60.2 Antisocial personality disorder; F32.9 Major depressive disorder, single episode, unspecified; Z79.899 Other long term (current) drug therapy; D64.9 Anemia, unspecified

== ENCOUNTER 2017-07-31 10:50 | Emergency (ER) | payer OTHER ==
[~2017-07-31] VITALS: Ht 172.7 cm; Wt 69.1 kg
[~2017-07-31 10:50] MED LIST: ARIP5TA PO; BUPR75TA5 PO
[2017-07-31] MEDS ORDERED: SUMA100T2 PO (11:00)
[2017-07-31] MEDS ORDERED: PROM50TA4 PO (11:00)
[2017-07-31] MEDS ORDERED: NS 1,000 ML IV ONE (12:15)
--- NOTE | 2017-07-31 12:47 | REP ---
Head CT without contrast: History: No altered mental status. Comparison study: June 15, 2017 and June 14, 2017. CT findings: Bone window settings demonstrate an intact bony calvarium. There is no evidence of skull fracture or incidental bony calvarial lesion. The visualized paranasal sinuses appear clear. No intraorbital abnormality is seen. On soft tissue window setting images; the lateral, third, and fourth ventricles are normal in size and position. Vazquez-white differentiation pattern is normal above and below the tentorium. There are is no evidence of intracranial hemorrhage. No mass, edema, infarction, or midline shift is seen. No extra-axial fluid collection is appreciated. Impression: Negative noncontrast head CT. Signed by Orlando Andrade MD 07/31/2017 12:40 P
[2017-07-31 12:49] LABS: METHADONE URINE NEGATIVE (NEGATIVE)
--- NOTE | 2017-07-31 12:49 | REP ---
CT study of the cervical spine without contrast: History: Trauma. Technique: Helical scanning is acquired and overlapping 2 mm high resolution axial images were generated and reviewed at bone and soft tissue window settings. Coronal and sagittal multiplanar re-formations images are generated. CT findings: There is no evidence of cervical spine element fracture. No skull base fracture is seen. Cervical vertebral body heights are preserved. Alignment is normal. Facet joints are normally aligned bilaterally at each cervical level on multiplanar re-formations images. There is no evidence of intraspinal or paraspinal hematoma. No extra vertebral abnormality is seen. Impression: Negative CT study of the cervical spine without contrast. No fracture seen. Signed by Orlando Andrade MD 07/31/2017 12:41 P
[2017-07-31 12:56] LABS: EOS # 0.1 K/mm3 (0.0-0.50); LARGE UNSTAINED CELL # 0.1 K/mm3 (0.0-0.4); MONO # 0.3 K/mm3 (0.0-0.8)
[2017-07-31 13:08] LABS: MEAN CORPUSCULAR HGB CONC 34.8 g/dl (32.0-36.5); MEAN CORPUSCULAR VOLUME 86.1 fl (80.0-96.0); WHITE BLOOD COUNT 4.8 K/mm3 (4.0-10.0)
[2017-07-31 13:09] LABS: BASO % 0.5 % (0.0-1.0); LARGE UNSTAINED CELL % 1.6 % (0.0-4.0); LYMPH # 1.4 K/mm3 (1.5-6.5); LYMPH % 29.9 % (24.0-44.0); NEUTROPHILS # 2.9 K/mm3 (1.8-7.7); NEUTROPHILS % 60.1 % (36.0-66.0); PLATELET COUNT, AUTOMATED 193 k/mm3 (150-450); RED CELL DISTRIBUTION WIDTH 12.5 % (11.5-14.5)
[2017-07-31 13:11] LABS: ALBUMIN 3.8 GM/DL (3.2-5.2); ALBUMIN/GLOBULIN RATIO 1.36 (1.00-1.93); ALKALINE PHOSPHATASE 72 U/L (45-117); ALT/SGPT 14 U/L (12-78); ANION GAP 5 MEQ/L (8-16); AST/SGOT 11 U/L (15-37); BILIRUBIN,DIRECT 0.4 MG/DL (0.0-0.2); BILIRUBIN,TOTAL 2.6 MG/DL (0.2-1.0); BLOOD UREA NITROGEN 12 MG/DL (7-18); CALCIUM LEVEL 8.8 MG/DL (8.5-10.1); CARBON DIOXIDE LEVEL 30 MEQ/L (21-32); CHLORIDE LEVEL 107 MEQ/L (98-107); GLUCOSE, FASTING 107 MG/DL (70-105); POTASSIUM SERUM 3.8 MEQ/L (3.5-5.1); SODIUM LEVEL 142 MEQ/L (136-145); TOTAL PROTEIN 6.6 GM/DL (6.4-8.2)
--- NOTE | 2017-07-31 14:20 | REP ---
PA and lateral chest: There are no comparisons. The lung mixon are clear. The cardiac size is normal The kim, mediastinum, and bony thorax are unremarkable. Impression: Negative PA and lateral chest. Signed by Yakov Gaines MD 07/31/2017 02:11 P
[2017-07-31 14:55] VITALS: BP 113/52
--- NOTE | 2017-07-31 20:10 | ECGEPIP ---
Stationary ECG Study [facility] - ED Test Date: 2017-07-31 Pat Name: ZAN GUNDERSON Department: Room: - Gender: M Gas Analyst: jlance : 1995 Requested By: FLORINDA Jimenez Order Number: [id number] Reading MD: Bart Greenberg Measurements Intervals [place] Rate: 62 P: 31 CA: 118 QRS: 79 QRSD: 98 T: 50 QT: 367 QTc: 374 Interpretive Statements SINUS RHYTHM WITH MARKED SINUS ARRHYTHMIA WITH SHORT CA INTERVAL Electronically Signed On 07-31-2017 20:09:48 EDT by Bart Greenberg
[2017-09-13] MEDS ORDERED: TRAZO50TA PO (10:26)
== END 2017-07-31 15:07 | disposition home or self-care (01) ==
LOC: M ED 10:50
DX: R55 Syncope and collapse (principal); G47.10 Hypersomnia, unspecified; F60.81 Narcissistic personality disorder; F60.2 Antisocial personality disorder; F33.9 Major depressive disorder, recurrent, unspecified; G47.00 Insomnia, unspecified; Z79.899 Other long term (current) drug therapy
CPT/HCPCS: 70450; 71020; 72125; 80048; 80076; 80307; 81001; 84443; 85025; 87086; 93005; 93041; 94760; 96360; 96361; 99285; G0480

== ENCOUNTER → 2017-08-07 | Outpatient (CLI) | payer OTHER ==
[~2017-08-07] MED LIST changes: +PROM50TA4 PO; +SUMA100T2 PO; +TRAZO50TA PO
[2017-08-07 11:30] LABS: BASO % 0.8 % (0.0-1.0); EOS # 0.2 10^3/uL (0.0-0.50); EOS % 3.1 % (0.0-3.0); IMMATURE GRANULOCYTE % 0.2 % (0-0); LYMPH % 41.1 % (24.0-44.0); MEAN CORPUSCULAR HEMOGLOBIN 29.9 pg (27.0-33.0); MEAN CORPUSCULAR HGB CONC 34.5 g/dl (32.0-36.5); MEAN CORPUSCULAR VOLUME 86.6 fl (80.0-96.0); MONO # 0.5 10^3/uL (0.0-0.8); MONO % 9.8 % (0.0-5.0); NEUTROPHILS # 2.2 10^3/uL (1.8-7.7); PLATELET COUNT, AUTOMATED 237 10^3/uL (150-450); RED CELL DISTRIBUTION WIDTH 12.2 % (11.5-14.5); WHITE BLOOD COUNT 4.9 10^3/uL (4.0-10.0)
[2017-08-07 12:07] LABS: ERYTHROCYTE SEDIMENTATION RATE 3 mm/hr (0-15)
[2017-08-07 12:38] LABS: ALBUMIN 4.2 GM/DL (3.2-5.2); ALBUMIN/GLOBULIN RATIO 1.35 (1.00-1.93); ALKALINE PHOSPHATASE 90 U/L (45-117); ALT/SGPT 20 U/L (12-78); ANION GAP 6 MEQ/L (8-16); AST/SGOT 23 U/L (15-37); BILIRUBIN,TOTAL 1.4 MG/DL (0.2-1.0); BLOOD UREA NITROGEN 11 MG/DL (7-18); CALCIUM LEVEL 9.4 MG/DL (8.5-10.1); CARBON DIOXIDE LEVEL 31 MEQ/L (21-32); CHLORIDE LEVEL 103 MEQ/L (98-107); GLUCOSE, FASTING 68 MG/DL (70-105); POTASSIUM SERUM 4.4 MEQ/L (3.5-5.1); SODIUM LEVEL 140 MEQ/L (136-145); TOTAL PROTEIN 7.3 GM/DL (6.4-8.2)
== END ==
LOC: M LAB 10:06
PROVIDERS: ATTEND Psychiatry & Neurology Neurology
DX: R51 Headache (principal); R53.83 Other fatigue

== ENCOUNTER 2018-01-09 17:44 | Inpatient (IN) | payer OTHER ==
[2018-01-09 18:27] LABS: HEMATOCRIT 43.7 % (42.0-52.0); HEMOGLOBIN 15.1 g/dl (14.0-18.0); MEAN CORPUSCULAR HEMOGLOBIN 29.8 pg (27.0-33.0); MEAN CORPUSCULAR HGB CONC 34.6 g/dl (32.0-36.5); MEAN CORPUSCULAR VOLUME 86.2 fl (80.0-96.0); PLATELET COUNT, AUTOMATED 226 10^3/uL (150-450); RED BLOOD COUNT 5.07 10^6/uL (4.30-6.10); RED CELL DISTRIBUTION WIDTH 11.9 % (11.5-14.5)
[2018-01-09 19:02] LABS: AMPHETAMINES LEVEL URINE NEGATIVE (NEGATIVE); BARBITURATES URINE NEGATIVE (NEGATIVE); BENZODIAZEPINES URINE NEGATIVE (NEGATIVE); CANNABINOIDS URINE NEGATIVE (NEGATIVE); COCAINE METABOLITE URINE NEGATIVE (NEGATIVE); METHADONE URINE NEGATIVE (NEGATIVE); OPIATES URINE NEGATIVE (NEGATIVE); PHENCYCLIDINE URINE NEGATIVE (NEGATIVE)
[2018-01-09 19:10] LABS: ALBUMIN 4.4 GM/DL (3.2-5.2); ALBUMIN/GLOBULIN RATIO 1.38 (1.00-1.93); ALKALINE PHOSPHATASE 87 U/L (45-117); ALT/SGPT 17 U/L (12-78); ANION GAP 6 MEQ/L (8-16); AST/SGOT 20 U/L (7-37); BILIRUBIN,DIRECT 0.2 MG/DL (0.0-0.2); BILIRUBIN,TOTAL 1.2 MG/DL (0.2-1.0); BLOOD UREA NITROGEN 13 MG/DL (7-18); CALCIUM LEVEL 8.9 MG/DL (8.5-10.1); CARBON DIOXIDE LEVEL 31 MEQ/L (21-32); CHLORIDE LEVEL 102 MEQ/L (98-107); CREATININE FOR GFR 0.97 MG/DL (0.70-1.30); ETHYL ALCOHOL (ETHANOL) < 0.003 % (0.000-0.010); GLUCOSE, FASTING 79 MG/DL (70-100); POTASSIUM SERUM 3.9 MEQ/L (3.5-5.1); SALICYLATE LEVEL < 1.7 MG/DL (5.0-30.0); SODIUM LEVEL 139 MEQ/L (136-145); TOTAL PROTEIN 7.6 GM/DL (6.4-8.2)
[2018-01-09 19:20] LABS: ACETAMINOPHEN LEVEL < 2.0 UG/ML (10.0-30.0)
[2018-01-09] MEDS ORDERED: MOM 30ML SUSPENSION UDC PO (20:15)
[2018-01-09] MEDS ORDERED: MAALOX 30 ML SUSP *UDC PO (20:15)
[2018-01-09] MEDS ORDERED: traZODone 50 MG TAB PO (20:15)
[2018-01-10] MEDS: traZODone 100 MG TAB PO (00:13)
[2018-01-10] MEDS: MIRTAZAPINE 15 MG TAB PO ×2 (00:13→19:28)
[2018-01-10] MEDS: buPROPion **XL** TABLET 150MG (WELLBUTRIN XL) PO (09:00)
[2018-01-10] MEDS: OLANZapine ORAL DISINTEGRATING TAB 5MG PO ×2 (18:55→19:28)
[2018-01-10] MEDS: LORazepam 2 MG TAB PO (18:55)
[2018-01-10] MEDS: PALIPERIDONE 6 MG ER TAB (INVEGA) PO (19:28)
[2018-01-10] MEDS: ACETAMINOPHEN TAB 650MG DOSE (2X325MG) PO (19:28)
[2018-01-10] MEDS: QUEtiapine FUMARATE 100 MG TAB PO (19:28)
[2018-01-10] MEDS: diphenhydrAMINE 25 MG CAP PO (19:28)
[2018-01-11 07:37] LABS: HEMATOCRIT 43.8 % (42.0-52.0); HEMOGLOBIN 15.2 g/dl (14.0-18.0); MEAN CORPUSCULAR HEMOGLOBIN 29.7 pg (27.0-33.0); MEAN CORPUSCULAR HGB CONC 34.7 g/dl (32.0-36.5); MEAN CORPUSCULAR VOLUME 85.7 fl (80.0-96.0); PLATELET COUNT, AUTOMATED 205 10^3/uL (150-450); RED BLOOD COUNT 5.11 10^6/uL (4.30-6.10); RED CELL DISTRIBUTION WIDTH 11.9 % (11.5-14.5); WHITE BLOOD COUNT 4.1 10^3/uL (4.0-10.0)
[2018-01-11 08:02] LABS: ALBUMIN 4.1 GM/DL (3.2-5.2); ALBUMIN/GLOBULIN RATIO 1.46 (1.00-1.93); ALKALINE PHOSPHATASE 67 U/L (45-117); ALT/SGPT 16 U/L (12-78); ANION GAP 6 MEQ/L (8-16); AST/SGOT 14 U/L (7-37); BILIRUBIN,TOTAL 1.7 MG/DL (0.2-1.0); BLOOD UREA NITROGEN 15 MG/DL (7-18); CALCIUM LEVEL 9.1 MG/DL (8.5-10.1); CARBON DIOXIDE LEVEL 29 MEQ/L (21-32); CHLORIDE LEVEL 105 MEQ/L (98-107); CREATININE FOR GFR 1.04 MG/DL (0.70-1.30); GLUCOSE, FASTING 72 MG/DL (70-100); POTASSIUM SERUM 4.2 MEQ/L (3.5-5.1); SODIUM LEVEL 140 MEQ/L (136-145); TOTAL PROTEIN 6.9 GM/DL (6.4-8.2)
[2018-01-11] MEDS: LORazepam 1 MG TAB PO (16:15)
[2018-01-11] MEDS: PALIPERIDONE 3 MG ER TAB (INVEGA) PO (16:15)
[2018-01-11] MEDS: PALIPERIDONE 6 MG ER TAB (INVEGA) PO (21:00)
[2018-01-11] MEDS: MIRTAZAPINE 15 MG TAB PO (21:00)
[2018-01-11] MEDS: QUEtiapine FUMARATE 100 MG TAB PO (21:00)
[2018-01-12] MEDS: LORazepam 1 MG TAB PO ×2 (03:19→13:03)
[2018-01-12] MEDS: OLANZapine ORAL DISINTEGRATING TAB 5MG PO ×2 (03:19→13:03)
[2018-01-12] MEDS: PALIPERIDONE 3 MG ER TAB (INVEGA) PO (08:40)
[2018-01-12] MEDS: hydrOXYzine 25 MG TAB PO (17:31)
[2018-01-12] MEDS: PALIPERIDONE 6 MG ER TAB (INVEGA) PO (20:28)
[2018-01-12] MEDS: MIRTAZAPINE 15 MG TAB PO (20:28)
[2018-01-12] MEDS: QUEtiapine FUMARATE 100 MG TAB PO (20:28)
[2018-01-13] MEDS: PALIPERIDONE 3 MG ER TAB (INVEGA) PO (08:42)
[2018-01-13] MEDS: hydrOXYzine 25 MG TAB PO (18:16)
[2018-01-13] MEDS: QUEtiapine FUMARATE 100 MG TAB PO (19:45)
[2018-01-13] MEDS: MIRTAZAPINE 15 MG TAB PO (19:45)
[2018-01-13] MEDS: PALIPERIDONE 6 MG ER TAB (INVEGA) PO (19:45)
[2018-01-13] MEDS: OLANZapine ORAL DISINTEGRATING TAB 5MG PO (19:46)
[2018-01-13] MEDS: LORazepam 1 MG TAB PO (19:46)
[2018-01-13] MEDS: ACETAMINOPHEN TAB 650MG DOSE (2X325MG) PO (19:47)
[2018-01-14] MEDS: PALIPERIDONE 3 MG ER TAB (INVEGA) PO (08:31)
[2018-01-14] MEDS: MIRTAZAPINE 15 MG TAB PO (20:36)
[2018-01-14] MEDS: PALIPERIDONE 6 MG ER TAB (INVEGA) PO (20:36)
[2018-01-14] MEDS: QUEtiapine FUMARATE 100 MG TAB PO (20:37)
[2018-01-14] MEDS: HALOPERIDOL 5 MG/ML VIAL (J1630) IM (20:47)
[2018-01-14] MEDS: LORazepam 2 MG/ML VIAL (J2060) IM (20:47)
[2018-01-15] MEDS: PALIPERIDONE 3 MG ER TAB (INVEGA) PO (08:47)
[2018-01-15] MEDS: ACETAMINOPHEN TAB 650MG DOSE (2X325MG) PO (13:59)
[2018-01-15] MEDS: PALIPERIDONE 6 MG ER TAB (INVEGA) PO (20:01)
[2018-01-15] MEDS: QUEtiapine FUMARATE 100 MG TAB PO (20:01)
[2018-01-15] MEDS: MIRTAZAPINE 15 MG TAB PO (20:01)
[2018-01-15] MEDS: OLANZapine ORAL DISINTEGRATING TAB 5MG PO (20:01)
[2018-01-16] MEDS: PALIPERIDONE 3 MG ER TAB (INVEGA) PO (09:23)
[2018-01-16] MEDS: PALIPERIDONE 6 MG ER TAB (INVEGA) PO (20:07)
[2018-01-16] MEDS: LORazepam 1 MG TAB PO (20:08)
[2018-01-16] MEDS: hydrOXYzine 25 MG TAB PO (20:08)
[2018-01-16] MEDS: QUEtiapine FUMARATE 100 MG TAB PO (20:08)
[2018-01-16] MEDS: MIRTAZAPINE 15 MG TAB PO (20:08)
[2018-01-17] MEDS: PALIPERIDONE 3 MG ER TAB (INVEGA) PO (08:36)
[2018-01-17] MEDS: ACETAMINOPHEN TAB 650MG DOSE (2X325MG) PO (10:00)
[2018-01-17] MEDS: OLANZapine ORAL DISINTEGRATING TAB 5MG PO (17:33)
[2018-01-17] MEDS: QUEtiapine FUMARATE 100 MG TAB PO (21:07)
[2018-01-17] MEDS: PALIPERIDONE 6 MG ER TAB (INVEGA) PO (21:07)
[2018-01-17] MEDS: MIRTAZAPINE 15 MG TAB PO (21:07)
== END 2018-01-18 02:55 | disposition home or self-care (01) | DRG 885 ==
LOC: M PSY 01-11 09:34 → M ED 17:44 → M ED INP 20:10 → M PSY 23:19
DX: F32.3 Major depressive disorder, single episode, severe with psychotic features (principal); F60.9 Personality disorder, unspecified; F17.210 Nicotine dependence, cigarettes, uncomplicated; G43.909 Migraine, unspecified, not intractable, without status migrainosus; Z90.49 Acquired absence of other specified parts of digestive tract; Z88.8 Allergy status to other drugs, medicaments and biological substances; Z79.899 Other long term (current) drug therapy